=== PATIENT | female | born 1965 | race Caucasian/White ===

== ENCOUNTER 2016-10-19 10:25 | Emergency (ER) | payer OTHER ==
[~2016-10-19] VITALS: Ht 165.1 cm; Wt 83.6 kg
[2016-10-19 10:32] VITALS: Ht 165.1 cm; Wt 83.6 kg
[2016-10-19] MEDS ORDERED: AMO500 PO (11:17)
[2016-10-19] MEDS ORDERED: IBUP-1542 PO (11:18)
--- NOTE | 2016-10-19 11:22 | ERD ---
ER Documentation Chief Complaint Date/Time DATE: 10/19/16 TIME: 11:21 Chief Complaint SORE THROAT HPI This 51-year-old female presents with sore throat possible tactile fevers for last week. There is no fever triage. She has productive cough as well. She denies any vomiting, abdominal pain, diarrhea. She has pain in her neck in the anterior cervical area. She denies any chest pain ROS All systems reviewed and are negative except as per history of present illness. Medications Home Meds Active Scripts Ibuprofen* (Motrin*) 600 Mg Tab, 600 MG PO Q6, #15 TAB Prov:CARMEN GUNTER MD 10/19/16 Amoxicillin* (Amoxicillin*) 500 Mg Cap, 500 MG PO TID for 10 Days, CAP Prov:CARMEN GUNTER MD 10/19/16 Physical Exam Vitals Vital Signs Date Time Temp Pulse Resp B/P Pulse Ox O2 Delivery O2 Flow Rate FiO2 10/19/16 10:32 98.1 73 19 136/82 99 Physical Exam Const: [] Alert, not ill-appearing, speak complete sentences. Head: Atraumatic Eyes: Normal Conjunctiva ENT: Normal External Ears, Nose and Mouth. TMs normal. There is some erythema in the posterior oropharynx. There are some tender anterior cervical lymphadenitis. No appreciable thyroid tenderness or masses. Neck: Full range of motion..~ No meningismus. Resp: Clear to auscultation bilaterally Cardio: Regular rate and rhythm, no murmurs Abd: Soft, non tender, non distended. Normal bowel sounds Skin: No petechiae or rashes Back: No midline or flank tenderness Ext: No cyanosis, or edema Neur: Awake and alert Psych: Normal Mood and Affect Procedures/MDM Patient presents with signs symptoms of acute pharyngitis. There is no evidence of airway obstruction or hypoxemia or abscess. Patient was treated with amoxicillin ibuprofen and instructed to follow-up with primary doctor this week, otherwise return to the ER for new or worsening symptoms. The patient was stable with no new complaints during the ER course. Clinically, there is no current evidence to suggest meningitis, sepsis, acute abdomen, pneumonia, acute coronary syndrome, pulmonary embolism, or any other emergent condition appearing to require further evaluation or hospitalization. The patient should certainly return for any new or worsening symptoms per the aftercare instructions. They should otherwise follow-up with her primary care doctor for reevaluation this week. Departure Diagnosis: Primary Impression: Sore throat Condition: Stable Patient Instructions: Pharyngitis, Strep (Presumed) Additional Instructions: Cheque otro vez con [facility] doctor primario en el proximo mayen or regresa para mas o nueva simptomas. CARMEN GUNTER MD Oct 19, 2016 11:22
== END 2016-10-19 11:55 | disposition home or self-care (01) ==
LOC: FTE 10:25
DX: J02.9 Acute pharyngitis, unspecified (principal)
CPT/HCPCS: 99283

== ENCOUNTER 2017-04-08 17:08 | Emergency (ER) | payer OTHER ==
[~2017-04-08] VITALS: Ht 162.6 cm; Wt 85.5 kg
[~2017-04-08 17:08] MED LIST: AMOX500C2 PO; IBUP-1542 PO
[2017-04-08 17:13] VITALS: Ht 162.6 cm; Wt 85.5 kg
[2017-04-08 20:14] LABS: URINE BLOOD (Dip) POC 1+ (NEGATIVE)
[2017-04-08] MEDS ORDERED: CHOL200073 PO (20:41)
[2017-04-08] MEDS ORDERED: LEVO175T6 PO (20:41)
[2017-04-08] MEDS ORDERED: LOSA50TA6 PO (20:42)
[2017-04-08] MEDS ORDERED: KETOROLAC 15 MG INJ IV STA (20:44)
[2017-04-08] MEDS ORDERED: HYDROmorphONE 1 MG/ML SYG IV STA (21:07)
[2017-04-08] MEDS ORDERED: ONDANSETRON 4 MG INJ IV STA (21:07)
[2017-04-08 21:24] LABS: BASOPHIL # 0.1 10^3/ul (0.0-0.1); BASOPHILS % 0.8 % (0.0-2.0); EOSINOPHILS # 0.1 10^3/ul (0.0-0.5); EOSINOPHILS % 1.7 % (0.0-7.0); HEMATOCRIT 38.1 % (37.0-47.0); HEMOGLOBIN 12.7 g/dl (12.0-16.0); LYMPHOCYTES # 1.8 10^3/ul (0.8-2.9); LYMPHOCYTES % 27.4 % (15.0-51.0); MEAN CORPUSCULAR HEMOGLOBIN 29.3 pg (29.0-33.0); MEAN CORPUSCULAR HGB CONC 33.3 g/dl (32.0-37.0); MEAN PLATELET VOLUME 10.2 fl (7.4-10.4); MONOCYTE # 0.4 10^3/ul (0.3-0.9); MONOCYTES % 6.1 % (0.0-11.0); NEUTROPHIL # 4.2 10^3/ul (1.6-7.5); NEUTROPHILS % 63.7 % (39.0-77.0); PLATELET COUNT 249 10^3/UL (140-415); RED BLOOD COUNT 4.33 10^6/ul (4.20-5.40); RED CELL DISTRIBUTION WIDTH 13.5 % (11.5-14.5); WHITE BLOOD COUNT 6.6 10^3/ul (4.8-10.8)
[2017-04-08] MEDS ORDERED: SOD CHLORIDE 0.9% 1,000 ML IV ONE (21:30)
[2017-04-08 21:31] LABS: ALBUMIN 5.1 g/dl (3.3-4.9); ALBUMIN/GLOBULIN RATIO 1.41; BILIRUBIN,INDIRECT 0.4 mg/dl (0-1.1); BILIRUBIN,TOTAL 0.4 mg/dl (0.2-1.3); CALCIUM 10.1 mg/dl (8.4-10.2); CREATININE 0.76 mg/dl (0.44-1.00); POTASSIUM 4.1 mmol/L (3.5-5.1); TOTAL PROTEIN 8.7 g/dl (6.1-8.1)
--- NOTE | 2017-04-08 22:19 | ERA ---
ER Documentation Chief Complaint Date/Time DATE: 04/08/17 TIME: 22:19 Chief Complaint left flank pain since yesterday HPI The patient is a 51-year-old female, presenting to the ER because of left flank pain for 1 week ultimately, worse tonight. She had similar symptoms previously , denies aggravating/relieving factor, diarrhea, constipation, dysuria. She denies fever, chills, cough, neck pain, chest pain, dyspnea. He does not smoke , drinks socially past Medical history: Hypertension, hypothyroidism Past Surgical history: None ROS All systems reviewed and are negative except as per history of present illness. Medications Home Meds Active Scripts Tramadol HCl (Tramadol HCl) 50 Mg Tablet, 50 MG PO Q6 Y for PAIN, #10 TAB Prov:JAMIE JAMES MD 04/09/17 Reported Medications Losartan Potassium* (Losartan Potassium*) 50 Mg Tablet, 50 MG PO DAILY, TAB 04/08/17 Cholecalciferol (Vitamin D3) (VITAMIN D-3) 2,000 Unit Capsule, 2000 UNIT PO DAILY, CAP 04/08/17 Levothyroxine Sodium* (Levothyroxine Sodium*) 175 Mcg Tablet, 175 MCG PO BEFORE BREAKFAST, #30 TAB 04/08/17 Discontinued Scripts Ibuprofen* (Motrin*) 600 Mg Tab, 600 MG PO Q6, #15 TAB Prov:CARMEN GUNTER MD 10/19/16 Amoxicillin* (Amoxicillin*) 500 Mg Cap, 500 MG PO TID for 10 Days, CAP Prov:CARMEN GUNTER MD 10/19/16 Allergies Allergies: Coded Allergies: No Known Allergy (Unverified , 04/08/17) PMhx/Soc Medical and Surgical Hx: pt denies Surgical Hx History of Surgery: No Anesthesia Reaction: No Hx Neurological Disorder: No Hx Respiratory Disorders: No Hx Cardiac Disorders: Yes (HTN) Hx Psychiatric Problems: No Hx Miscellaneous Medical Probl: Yes (Thyroid deficiency) Hx Alcohol Use: No Hx Substance Use: No Hx Tobacco Use: No Smoking Status: Never smoker Physical Exam Vitals Vital Signs Date Time Temp Pulse Resp B/P Pulse Ox O2 Delivery O2 Flow Rate FiO2 04/09/17 01:00 98.2 63 18 108/65 98 Room Air 04/08/17 20:49 97.7 60 20 164/84 100 Room Air 04/08/17 17:13 98.5 73 19 132/83 98 Physical Exam Const: No acute distress. Head: Atraumatic. Eyes: Normal Conjunctiva. ENT: Normal External Ears, Nose and Mouth. Neck: Full range of motion. No meningismus. Resp: Clear to auscultation bilaterally. Cardio: Regular rate and rhythm. Abd: Soft, non distended, normal bowel sounds, minimal left flank tenderness, no right lower quadrant, right upper quadrant, epigastric, CVA tenderness Skin: No petechiae or rashes. Back: No midline or flank tenderness. Ext: No cyanosis, or edema. Neur: Awake and alert. No focal deficit Psych: Normal Mood and Affect. Result Diagram: 04/08/17200704/08/172007 Results 24 hrs Laboratory Tests Test 04/08/17 20:08 04/08/17 20:23 White Blood Count 6.610^3/ul Red Blood Count 4.3310^6/ul Hemoglobin 12.7g/dl Hematocrit 38.1% Mean Corpuscular Volume 88.0fl Mean Corpuscular Hemoglobin 29.3pg Mean Corpuscular Hemoglobin Concent 33.3g/dl Red Cell Distribution Width 13.5% Platelet Count 57652^3/UL Mean Platelet Volume 10.2fl Neutrophils % 63.7% Lymphocytes % 27.4% Monocytes % 6.1% Eosinophils % 1.7% Basophils % 0.8% Nucleated Red Blood Cells % 0.0/100WBC Neutrophils # 4.210^3/ul Lymphocytes # 1.810^3/ul Monocytes # 0.410^3/ul Eosinophils # 0.110^3/ul Basophils # 0.110^3/ul Nucleated Red Blood Cells # 0.010^3/ul Sodium Level 143mmol/L Potassium Level 4.1mmol/L Chloride Level 105mmol/L Carbon Dioxide Level 27mmol/L Anion Gap 15 Blood Urea Nitrogen 19mg/dl Creatinine 0.76mg/dl Glucose Level 103mg/dl Calcium Level 10.1mg/dl Total Bilirubin 0.4mg/dl Direct Bilirubin 0.00mg/dl Indirect Bilirubin 0.4mg/dl Aspartate Amino Transf (AST/SGOT) 24IU/L Alanine Aminotransferase (ALT/SGPT) 30IU/L Alkaline Phosphatase 117IU/L Total Protein 8.7g/dl Albumin 5.1g/dl Globulin 3.60g/dl Albumin/Globulin Ratio 1.41 Lipase 99U/L Bedside Urine pH (LAB) 5.5 Bedside Urine Protein (LAB) Negative Bedside Urine Glucose (UA) Negative Bedside Urine Ketones (LAB) Negative Bedside Urine Blood 1+ Bedside Urine Nitrite (LAB) Negative Bedside Urine Leukocyte Esterase (L Negative Current Medications Medications (Trade) Dose Ordered Sig/Katina Route PRN Reason Start Time Stop Time Status Last Admin Dose Admin Ketorolac Tromethamine (Toradol) 15 mg ONCE STAT IV 04/08/17 20:44 04/08/17 20:46 DC 04/08/17 20:52 Ondansetron HCl (Zofran Inj) 4 mg ONCE STAT IV 04/08/17 21:07 04/08/17 21:09 DC 04/08/17 21:13 Hydromorphone HCl 1 mg 1 mg ONCE STAT IV 04/08/17 21:07 04/08/17 21:09 DC 04/08/17 21:13 Sodium Chloride (NS) 1,000 ml @ 1,000 mls/hr Q1H ONCE IV 04/08/17 21:30 04/08/17 22:29 DC 04/08/17 20:20 Ketorolac Tromethamine (Toradol) 15 mg ONCE ONCE IV 04/09/17 00:02 04/09/17 00:05 DC 04/09/17 00:15 Procedures/[place] [id number] Radiology Main Line: [phone] DIAGNOSTIC IMAGING REPORT Patient: KIM STEPHEN : 1965 Age: 51 Sex: F [id number] DOS: 04/08/17 2254 Ordering MD: JAMIE JAMES MD Location: E/R Room/Bed: PROCEDURE: CT Abdomen and pelvis without contrast. CLINICAL INDICATION: Abdominal pain. TECHNIQUE: CT scan of the abdomen and pelvis was performed on a multi- detector high-resolution CT scanner. Contiguous axial images were obtained from the lung bases to the ischial tuberosities without intravenous contrast. Coronal and sagittal reformatted images were also obtained. Images were reviewed on the PACS workstation. One or more of the following dose reduction techniques were used: - Automated exposure control. - Adjustment of the mA and/or kV according to patient size. - Use of iterative reconstruction technique. Exam CTD/vol = 20.20 mGy. Total exam DLP = 1129.74 mGy-cm. COMPARISON: None. FINDINGS: Evaluation of the lung bases demonstrates no pleural or parenchymal disease. Abdomen: The liver is normal in size. There is no focal mass or dilatation of the biliary tree. The gallbladder is not distended. The spleen, pancreas and bilateral adrenal glands are within normal limits. Bilateral kidneys are normal in size with no contour deforming mass identified. There is no radiopaque renal or ureteral calculus identified. There is no hydronephrosis or hydroureter. There is no retroperitoneal adenopathy. The abdominal aorta is of normal caliber. There is no abnormal bowel wall thickening or distension. There is no bowel obstruction or free air. A normal appendix is identified. There is no diverticulosis or diverticulitis. There is mild stranding within the central mesenteric fat and small lymph nodes. There is no ascites. Pelvis: The bladder is unremarkable. The uterus and adnexa are within normal limits. There is no significant pelvic adenopathy or free fluid. Evaluation of the osseous structures demonstrates no suspicious lytic or blastic lesion. IMPRESSION: Mild stranding and small lymph nodes within the central mesentery represents nonspecific mesenteritis adenitis. Otherwise no acute abnormality identified within the abdomen and pelvis. .Jamir Toth MD, MD Date Time Electronically viewed and signed by .Jamir Toth MD, MD on 04/09/2017 00:28 .T/ CC: JAMIE JAMES MD MEDICAL MAKING DECISION: This is a 51-year-old female, presenting with acute left flank pain of unclear etiology, acute hematuria. She was treated with 1 L normal saline for clinical dehydration, Dilaudid 1 mg IV, Toradol 30 mg IV for pain and Zofran 4 mg IV for nausea with good response. Multiple reevaluation, abdominal exams were unremarkable. The differential diagnoses considered include but are not limited to nonspecific mesenteritis adenitis, renal colic, cholelithiasis, cholecystitis, cystitis, pancreatitis, hepatitis, gastritis, peptic ulcer disease, gastric ulcer, appendicitis, diverticulitis, cholangitis, choledocholithiasis, partial small bowel obstruction. Departure Diagnosis: Primary Impression: Left flank pain Additional Impression: Hematuria Condition: Good Comments She was discharged with Ultram and advised to return in 8 hours for reevaluation , sooner if any concern JAMIE JAMES MD Apr 08, 2017 22:19
[2017-04-09] MEDS ORDERED: KETOROLAC 15 MG INJ IV ONE (00:02)
--- NOTE | 2017-04-09 00:28 | RADRPT ---
PROCEDURE: CT Abdomen and pelvis without contrast. CLINICAL INDICATION: Abdominal pain. TECHNIQUE: CT scan of the abdomen and pelvis was performed on a multi-detector high-resolution CT scanner. Contiguous axial images were obtained from the lung bases to the ischial tuberosities wit hout intravenous contrast. Coronal and sagittal reformatted images were also obtained. Images were reviewed on the PACS workstation. One or more of the following dose reduction techniques were used: - Automated exposure control. - Adjustment of the mA and/or kV according to patient size. - Use of iterative reconstruction technique. Exam CTD/vol = 20.20 mGy. Total exam DLP = 1129.74 mGy-cm. COMPARISON: None. FINDINGS: Evaluation of the lung bases demonstrates no pleural or parenchymal disease. Abdomen: The liver is normal in size. There is no focal mass or dilatation of the biliary tree. T he gallbladder is not distended. The spleen, pancreas and bilateral adrenal glands are within terry l limits. Bilateral kidneys are normal in size with no contour deforming mass identified. There is no radiopaque renal or ureteral calculus identified. There is no hydronephrosis or hydroureter. T here is no retroperitoneal adenopathy. The abdominal aorta is of normal caliber. There is no abnormal bowel wall thickening or distension. There is no bowel obstruction or free air . A normal appendix is identified. There is no diverticulosis or diverticulitis. There is mild st randing within the central mesenteric fat and small lymph nodes. There is no ascites. Pelvis: The bladder is unremarkable. The uterus and adnexa are within normal limits. There is no significant pelvic adenopathy or free fluid. Evaluation of the osseous structures demonstrates no suspicious lytic or blastic lesion. IMPRESSION: Mild stranding and small lymph nodes within the central mesentery represents nonspecific mesenteriti s-adenitis. Otherwise no acute abnormality identified within the abdomen and pelvis. .Jamir Toth MD, MD Date Time Electronically viewed and signed by .Jamir Toth MD, MD on 04/09/2017 00:28 .T/
[2017-04-09] MEDS ORDERED: TRAM50TA2 PO (00:50)
[2017-04-09 01:00] VITALS: BP 108/65; PULSE 63; RESP 18; TEMP 98.2
[2017-04-09] MEDS ORDERED: NAPR-688 PO (15:36)
[2017-04-09] MEDS ORDERED: POLY17PO6 PO (15:45)
== END 2017-04-09 01:12 | disposition home or self-care (01) ==
LOC: E/R 17:08
DX: R10.9 Unspecified abdominal pain (principal); R31.9 Hematuria, unspecified; I10 Essential (primary) hypertension; E03.9 Hypothyroidism, unspecified; R40.2142 Coma scale, eyes open, spontaneous, at arrival to emergency department; R40.2252 Coma scale, best verbal response, oriented, at arrival to emergency department; R40.2362 Coma scale, best motor response, obeys commands, at arrival to emergency department
CPT/HCPCS: 36415; 74176; 80053; 81003; 83690; 85025; 96374; 96375; 96376; J1170; J1885; J2405; J7030; Z7502

== ENCOUNTER 2017-04-09 13:27 | Emergency (ER) | payer OTHER ==
[~2017-04-09] VITALS: Ht 157.5 cm; Wt 85.5 kg
[~2017-04-09 13:27] MED LIST changes: -AMOX500C2 PO; +CHOL200073 PO; -IBUP-1542 PO; +LEVO175T6 PO; +LOSA50TA6 PO; +TRAM50TA2 PO
[2017-04-09 13:31] VITALS: Ht 157.5 cm; Wt 85.5 kg
[2017-04-09] MEDS ORDERED: KETOROLAC 60 MG INJ IM STA (14:45)
[2017-04-09] MEDS ORDERED: traMADol 50 MG TAB PO ONE (15:00)
[2017-04-09] MEDS ORDERED: NAPR-688 PO (15:36)
--- NOTE | 2017-04-09 15:44 | ERD ---
ER Documentation Chief Complaint Date/Time DATE: 04/09/17 TIME: 15:38 Chief Complaint Patient here for a recheck HPI This 51-year-old female comes emergency room saying that after the pain medication that had relieved her pain yesterday in the emergency room wore off she continued to have pain again in her mid lower back along the spinal column, she wants to make sure she does not have any fracture there although she has not suffered any recent trauma states that she has fallen a couple times in the past and wants to make sure. She has not gone to the pharmacy to fill her prescription for tramadol or taken anything else for pain. Denies any fevers and chills, denies burning on urination, denies vaginal symptoms. She has no diarrhea ROS All systems reviewed and are negative except as per history of present illness. Medications Home Meds Active Scripts Naproxen* (Naproxen*) 500 Mg Tablet, 500 MG PO BID Y for PAIN, #20 TAB Prov:NINFA ACOSTA DO 04/09/17 Tramadol HCl (Tramadol HCl) 50 Mg Tablet, 50 MG PO Q6 Y for PAIN, #10 TAB Prov:JAMIE JAMES MD 04/09/17 Reported Medications Losartan Potassium* (Losartan Potassium*) 50 Mg Tablet, 50 MG PO DAILY, TAB 04/08/17 Cholecalciferol (Vitamin D3) (VITAMIN D-3) 2,000 Unit Capsule, 2000 UNIT PO DAILY, CAP 04/08/17 Levothyroxine Sodium* (Levothyroxine Sodium*) 175 Mcg Tablet, 175 MCG PO BEFORE BREAKFAST, #30 TAB 04/08/17 Discontinued Scripts Ibuprofen* (Motrin*) 600 Mg Tab, 600 MG PO Q6, #15 TAB Prov:CARMEN GUNTER MD 10/19/16 Amoxicillin* (Amoxicillin*) 500 Mg Cap, 500 MG PO TID for 10 Days, CAP Prov:CARMEN GUNTER MD 10/19/16 Allergies Allergies: Coded Allergies: No Known Allergy (Unverified , 04/08/17) PMhx/Soc History of Surgery: No Anesthesia Reaction: No Hx Neurological Disorder: No Hx Respiratory Disorders: No Hx Cardiac Disorders: Yes (HTN) Hx Psychiatric Problems: No Hx Miscellaneous Medical Probl: Yes (Thyroid deficiency) Hx Alcohol Use: No Hx Substance Use: No Hx Tobacco Use: No Smoking Status: Never smoker Physical Exam Vitals Vital Signs Date Time Temp Pulse Resp B/P Pulse Ox O2 Delivery O2 Flow Rate FiO2 04/09/17 14:09 98.6 57 20 121/78 98 Room Air 04/09/17 13:31 98.6 69 20 139/65 97 Physical Exam Const: [] NO distress Head: Atraumatic Eyes: Normal Conjunctiva ENT: Normal External Ears, Nose and Mouth. Neck: Full range of motion..~ No meningismus. Resp: Clear to auscultation bilaterally Cardio: Regular rate and rhythm, no murmurs Abd: Soft, non tender, non distended. Normal bowel sounds Skin: No petechiae or rashes Back: Line tenderness about the T12-L1 vertebral area with mild paraspinal muscle tenderness. Generalized anterior abdominal pain Ext: No cyanosis, or edema Neur: Awake and alert oriented 3, no focal deficits Psych: Normal Mood and Affect Results 24 hrs Current Medications Medications (Trade) Dose Ordered Sig/Katina Route PRN Reason Start Time Stop Time Status Last Admin Dose Admin Tramadol HCl (Ultram) 50 mg ONCE ONCE PO 04/09/17 15:00 04/09/17 15:01 DC 04/09/17 15:18 Ketorolac Tromethamine (Toradol) 60 mg ONCE STAT IM 04/09/17 14:45 04/09/17 14:47 DC 04/09/17 15:19 Procedures/MDM 3-year-old female with back pain and abdominal pain diagnosed with mesenteric adenitis yesterday by CAT scan. Reviewed her CAT scan see no bony fractures. Patient had not filled her medication. I gave her IM injection of Toradol as well as 1 of the tramadol as which she said significantly relieved her pain. I am instructing her to fill her tramadol prescription as well as prescribing naproxen. I have printed all of her results to take to her primary care physician and will be given to her. I recommend follow-up in 2-3 days and return precautions. Departure Diagnosis: Primary Impression: Mesenteric adenitis Additional Impressions: Back pain Abdominal pain Condition: Stable Patient Instructions: Abdominal Pain, Back Pain (Acute Or Chronic) Additional Instructions: Llame al doctor SACHA y babs aquiles GEORGE PARA DENTRO DE 2-3 PUGH.Dgale a la secretaria que nosotros le instruimos hacer esta george.Avise o llame si woodall condicin se empeora antes de la george. Regresa aqui si peor o no mejor. NINFA ACOSTA DO Apr 09, 2017 15:44
[2017-04-09] MEDS ORDERED: POLY17PO6 PO (15:45)
[2017-04-09 16:15] VITALS: BP 129/84; PULSE 57; RESP 20; TEMP 98.6
== END 2017-04-09 16:16 | disposition home or self-care (01) ==
LOC: E/R 13:27
DX: I88.0 Nonspecific mesenteric lymphadenitis (principal); M54.6 Pain in thoracic spine; I10 Essential (primary) hypertension
CPT/HCPCS: J1885; Z7502; Z7610

== ENCOUNTER 2018-07-04 14:40 | Emergency (ER) | payer OTHER ==
[~2018-07-04] VITALS: Ht 167.6 cm; Wt 83.4 kg
[~2018-07-04 14:40] MED LIST changes: +LOSA50TA14 PO; -LOSA50TA6 PO; +NAPR-688 PO; +POLY17PO6 PO
[2018-07-04 14:47] VITALS: BP 149/72; PULSE 83; RESP 20; Ht 167.6 cm; Wt 83.4 kg
[2018-07-04] MEDS ORDERED: IBUPROFEN 600 MG TAB PO ONE (18:00)
[2018-07-04] MEDS ORDERED: LIDOCAINE 1% (MPF) 5 ML VIAL INJ ONE (18:00)
[2018-07-04] MEDS ORDERED: CEFAZOLIN 1 GM INJ IM ONE (19:00)
[2018-07-04] MEDS ORDERED: HYDR-4011 PO (19:48)
[2018-07-04] MEDS ORDERED: IBUP-1542 PO (19:48)
[2018-07-04] MEDS ORDERED: CEPH-443 PO (19:48)
--- NOTE | 2018-07-04 21:22 | ERD ---
ER Documentation Chief Complaint Chief Complaint Complains of finger injury HPI 52-year-old female patient, right-handed presents to the ED with a second, third, fourth left hand crush injury sustained earlier today. Patient reports that the pressure went onto her left third finger. Patient reports that she has skin cuts from the crush injury. States that it is difficult for her to move her left third middle finger. Denies any head or neck injuries. Denies any fever, chills, nausea, vomiting, loss sensation, loss of range of motion. ROS All systems reviewed and are negative except as per history of present illness. Medications Home Meds Active Scripts Hydrocodone/Acetaminophen ([place] 5-325 Tablet) 1 Each Tablet, 1 TAB PO QHS PRN for PAIN, #7 TAB Prov:CHIP BEE PA-C 07/04/18 Ibuprofen* (Motrin*) 600 Mg Tab, 600 MG PO Q6, #30 TAB Prov:CHIP BEE PA-C 07/04/18 Cephalexin* (Keflex*) 500 Mg Capsule, 500 MG PO QID for 7 Days, CAP Prov:CHIP BEE PA-C 07/04/18 Polyethylene Glycol* (Miralax*) 17 Gm Powd.pack, 17 GM PO DAILY for CONSTIPATION, #7 Prov:NINFA ACOSTA DO 04/09/17 Naproxen* (Naproxen*) 500 Mg Tablet, 500 MG PO BID PRN for PAIN, #20 TAB Prov:NINFA ACOSTA DO 04/09/17 Tramadol HCl (Tramadol HCl) 50 Mg Tablet, 50 MG PO Q6 PRN for PAIN, #10 TAB Prov:JAMIE JAMES MD 04/09/17 Reported Medications Losartan Potassium* (Losartan Potassium*) 50 Mg Tablet, 50 MG PO DAILY, TAB 04/08/17 Cholecalciferol (Vitamin D3) (VITAMIN D-3) 2,000 Unit Capsule, 2000 UNIT PO DAILY, CAP 04/08/17 Levothyroxine Sodium* (Levothyroxine Sodium*) 175 Mcg Tablet, 175 MCG PO BEFORE BREAKFAST, #30 TAB 04/08/17 Allergies Allergies: Coded Allergies: No Known Allergy (Unverified , 04/08/17) PMhx/Soc History of Surgery: No Anesthesia Reaction: No Hx Neurological Disorder: No Hx Respiratory Disorders: No Hx Cardiac Disorders: Yes (HTN) Hx Psychiatric Problems: No Hx Miscellaneous Medical Probl: Yes (Thyroid deficiency) Hx Alcohol Use: No Hx Substance Use: No Hx Tobacco Use: No Physical Exam Vitals Vital Signs Date Temp Pulse Resp B/P (MAP) Pulse Ox O2 O2 Flow FiO2 Time Delivery Rate 07/04/18 98.3 83 20 149/72 97 14:47 (97) Physical Exam Const: Ykh-nby-mhsegweci, well-nourished. In no acute distress. Head: Atraumatic, normocephalic Eyes: Normal Conjunctiva without injection ENT: Normal external ear, nose and mouth. Neck: Full range of motion. No meningismus. Resp: Clear to auscultation bilaterally. No wheezing, rhonchi, rales, or crackles. No accessory muscle use. No retractions. Cardio: Regular rate and rhythm, no murmurs Skin: No petechiae or rashes Back: No midline tenderness. No CVA tenderness. Ext: No cyanosis, or edema. Cap refill less than 2 seconds. Distal pulses intact bilaterally. Left third middle finger ecchymosis, skin tear noted at the distal tip of her finger, skin avulsion noted. Full range of motion with DIP, PIP, MCP joints bilaterally except the distal DIP of the left third middle finger. Neur: Awake and alert. Normal gait and coordination. Muscle strength 5/5. Sensation intact bilaterally. Psych: Normal Mood and Affect Results 24 hrs Current Medications Medications Dose Sig/Katina Start Time Status Last (Trade) Ordered Route PRN Stop Time Admin Dose Reason Admin Ibuprofen 600 mg ONCE ONCE 07/04/18 DC 07/04/18 (Motrin) PO 18:00 07/04/18 18:03 18:01 Lidocaine 5 ml ONCE ONCE 07/04/18 DC (Xylocaine INJ 18:00 07/04/18 1% (Mpf)) 18:01 Cefazolin 1 gm ONCE ONCE 07/04/18 DC 07/04/18 Sodium IM 19:00 07/04/18 19:24 (Ancef) 19:01 Procedures/MDM 52-year-old female patient with past medical history of hypertension, thyroid problems presents to ED complaining of left third middle finger crush injury. Patient is afebrile and nontoxic-appearing. A left hand x-ray was ordered to further evaluate patient. Patient was also given ibuprofen 600 mg here in the ED. An electrocautery razor was used to remove blood from the distal third middle finger, left hand subungual hematoma. Betadine was used to clean the area. No surrounding erythema, purulent discharge. IMPRESSION: Comminuted fracture involving the distal phalanx of the left middle finger. Patient has an open fracture noted of the left middle finger. Patient was given Ancef 1 g here in the ED. Patient will also be given outpatient antibiotics. Patient was strictly injected to follow-up with an orthopedic physician for further evaluation and treatment. Splint Assessment: Neurovascularly intact pre and post splint placement with good fit. Patient's extremity symptoms have stabilized while they have been evaluated in the department and are appropriate for outpatient follow up. No evidence of fractures, dislocations, compartment syndrome, neurologic injury, vascular injury, open joint, open fracture, tendon laceration, septic arthritis, osteomyelitis, DVT, foreign body, or other emergent conditions. Diagnosis: Crush injury to finger Discharge medications: [place], Ibuprofen, Keflex Follow up with primary care physician in 1-2 days. Instructed patient to return to the ED sooner for any worsening symptoms. Patient's questions were answered. Patient is hemodynamically stable. Patient understood and agreed with discharge plan. Patient discharged stable. Disclaimer: Inadvertent spelling and grammatical errors are likely due to EHR/di ctation software use and do not reflect on the overall quality of patient care. Also, please note that the electronic time recorded on this note does not necessarily reflect the actual time of the patient encounter. Departure Diagnosis: Primary Impression: Crush injury to finger Encounter type: initial encounter Qualified Codes: S67.10XA - Crushing injury of unspecified finger(s), initial encounter Condition: Stable Patient Instructions: Fracture, Finger (Open) Referrals: [facility] Urgent Care 7 a.m.- 11 p.m. Every Day of the Week NO APPOINTMENT OR AUTHORIZATION NEEDED [facility] () Usted se adam hecho un examen mdico de control que le indica que no est en aquiles condicin que requiera tratamiento urgente en el Departamento de Emergencia. Un estudio ms profundo y el tratamiento de andre condicin pueden esperar sin ningn riesgo hasta que usted sea atendida/o en el consultorio de andre mdico o aquiles clnica. Es responsabilidad suya arreglar aquiles george para el seguimiento del erika. MANEJO DE CONDICIONES NO URGENTES EN EL FUTURO 1) Si usted tiene un mdico de atencin primaria: Usted debera llamar a andre mdico de atencin primaria antes de venir al departamento de emergencia. Despus de las horas de consultorio, andre doctor o andre asociado/a est disponible por telfono. El mdico o enfermero de lorelei en el servicio telefnico puede asesorarle por chelsea medio para atender el problema, o erika contrario se puede programar aquiles george. 2) Si usted no tiene un mdico de atencin primaria: Llame al mdico o clnica de referencia que aparece abajo pradeep las horas de consultorio para hacer aquiles george para que le vean. CLINICAS: [facility] [phone] [address] [facility] [facility] [phone] [facility] [phone] [facility] [place] [id number] [phone] [facility] [place] [id number] [phone] [facility]. [phone] [address] [facility] [place] [facility] Hours: Mon-Fri 9:00 AM - 5:00 PM [facility] () Usted se adam hecho un examen mdico de control que le indica que no est en aquiles condicin que requiera tratamiento urgente en el Departamento de Emergencia. Un estudio ms profundo y el tratamiento de andre condicin pueden esperar sin ningn riesgo hasta que usted sea atendida/o en el consultorio de andre mdico o aquiles clnica. Es responsabilidad suya arreglar aquiles george para el seguimiento del erika. MANEJO DE CONDICIONES NO URGENTES EN EL FUTURO 1) Si usted tiene un mdico de atencin primaria: Usted debera llamar a andre mdico de atencin primaria antes de venir al departamento de emergencia. Despus de las horas de consultorio, andre doctor o andre asociado/a est disponible por telfono. El mdico o enfermero de lorelei en el servicio telefnico puede asesorarle por chelsea medio para atender el problema, o erika contrario se puede programar aquiles george. 2) Si usted no tiene un mdico de atencin primaria: Llame al mdico o condado institucions de referencia que aparece abajo pradeep las horas de consultorio para hacer aquiles george para que le vean. SI USTED NO PUEDE PAGAR PARA KAVEH UN MEDICO puede ir a: [facility] [address] [place] [address] [facility] [address] [place] [address] [facility] [address] [place] [address] PARA [facility] [address] [place], [place] [id number] Additional Instructions: Llame al doctor MAANA y babs aquiles GEORGE PARA DENTRO DE 2-3 PUGH para aquiles remisin para kaveh a un mdico ortopdico. Dgale a la secretaria que nosotros le instruimos hacer esta george.Avise o llame si andre condicin se empeora antes de la george. Regresa aqui si peor o no mejor. WOUND CHECK:CONSULTE A ANDRE MDICO EN 2 contreras para kaveh ANDRE HERIDA. La medicina que se le recet puede causarle sueo.NO DEBE MANEJAR NI OPERAR MAQUINARIAS PELIGROSAS mientras esta tomando esta medicina! CHIP BEE PA-C Jul 04, 2018 21:22
== END 2018-07-04 20:18 | disposition home or self-care (01) ==
LOC: FTE 14:40
DX: S62.633A Displaced fracture of distal phalanx of left middle finger, initial encounter for closed fracture (principal); I10 Essential (primary) hypertension; X58.XXXA Exposure to other specified factors, initial encounter; Y92.9 Unspecified place or not applicable
CPT/HCPCS: 29130; 73130; 96372; J0690; Z7502; Z7610